=== PATIENT | male | born 1990 | race Hispanic/Latino ===

== ENCOUNTER 2017-06-27 15:22 | Observation (INO) | payer MEDICAID ==
[2017-06-27] MEDS ORDERED: Sodium Chloride 0.9% 1,000 ML IV STA (15:56)
--- NOTE | 2017-06-27 16:07 | ED PDOC ---
HPI: Abdomen Time Seen by Provider: 06/27/17 15:43 Chief Complaint (Nursing): Abdominal Pain Chief Complaint (Provider): Abdominal Pain History Per: Patient History/Exam Limitations: no limitations Onset/Duration Of Symptoms: Days Current Symptoms Are (Timing): Still Present Additional Complaint(s): 27 y/o male with a past medical history of crohn's disease (medicates with humeria) who presents to the emergency department with a complaint of a constant diffuse dull abdominal pain but intermittently waxes and wanes since 9pm last night, 06/26/2017. Associated with loss of appetite and 1 episode of non-bilious/non-bloody vomit. Reports he cannot pass gas and has not had stool output since last night. States symptoms are similar to past experience to when he was diagnosed with small bowel obstruction in 2016 and required surgery. Denies any further medical complaints. PMD: Dr. aMrko Lee MD ([place]) Past Medical History Reviewed: Historical Data, Nursing Documentation, Vital Signs Vital Signs: Last Vital Signs Temp 98.2 F 06/27/17 20:28 Pulse 86 06/27/17 20:28 Resp 19 06/27/17 20:36 BP 142/79 06/27/17 20:28 Pulse Ox 96 06/27/17 20:36 - Medical History PMH: Crohn's Disease - Surgical History Other surgeries: Crohn's surgery in 2016 and melanoma - Family History Family History: States: No Known Family Hx - Social History Current smoker - smoking cessation education provided: No Alcohol: Social Drugs: Denies - Home Medications Home Medications: Ambulatory Orders Medication Instructions Recorded Adalimumab [Humira Pen Crohn-Uc-Hs 40 mg pe INJ Q2W 06/27/17 Starter] - Allergies Allergies/Adverse Reactions: Allergies Allergy/AdvReac Type Severity Reaction Status Date / Time No Known Allergies Allergy Verified 06/27/17 15:38 Review of Systems ROS Statement: Except As Marked, All Systems Reviewed And Found Negative (As per HPI otherwise negative) Constitutional: Positive for: Other (Loss of appetite) Gastrointestinal: Positive for: Vomiting (1 episode ), Abdominal Pain (Diffuse) , Other (Not passing gas nor stool since last night). Negative for: Hematemesis (and non-bilious) Physical Exam - Reviewed Nursing Documentation Reviewed: Yes Vital Signs Reviewed: Yes - Physical Exam Appears: Positive for: Non-toxic, In Acute Distress (painful distress, and tired appearing) Head Exam: Positive for: ATRAUMATIC, NORMOCEPHALIC Skin: Positive for: Warm, Dry Eye Exam: Positive for: EOMI, PERRL ENT: Positive for: Other (dry mucus membranes). Negative for: Pharyngeal Erythema, Tonsillar Exudate Neck: Positive for: Painless ROM, Supple Cardiovascular/Chest: Positive for: Regular Rate, Rhythm, Chest Non Tender. Negative for: Murmur Respiratory: Positive for: Normal Breath Sounds. Negative for: Wheezing Gastrointestinal/Abdominal: Positive for: Bowel Sounds, Soft, Tenderness ( diffuse). Negative for: Mass, Distended, Guarding, Rebound Back: Positive for: Normal Inspection. Negative for: Vertebral Tenderness Extremity: Positive for: Normal ROM. Negative for: Deformity Lymphatic: Negative for: Adenopathy Neurologic/Psych: Positive for: Alert. Negative for: Motor/Sensory Deficits - Laboratory Results Result Diagrams: 06/27/17 16:30 06/27/17 16:30 - ECG O2 Sat by Pulse Oximetry: 100 (RA) Pulse Ox Interpretation: Normal Medical Decision Making Medical Decision Making: Time: 15:55 Initial Impression: Abdominal Pain. Differential includes small bowel obstruction, dipsia, gastritis, and crohn's exacerbation Initial Plan: --Blood and Lab work-up --Abd & pelvis IV contrast CT --Dextrose 500 ml IV 100 mls/hr --Morphine 2 mg IVP --Sodium Chloride 1L IV --Zofran 4 mg IVP --ED Observation for abdominal pain Any further documentation will be added to ED Obs section of chart. Scribe Attestation: Documented by Laura Hooper and Lanie Melara, acting as a scribe for Monica Early MD. Provider Scribe Attestation: All medical record entries made by the Scribe were at my direction and personally dictated by me. I have reviewed the chart and agree that the record accurately reflects my personal performance of the history, physical exam, medical decision making, and the department course for this patient. I have also personally directed, reviewed, and agree with the discharge instructions and disposition. ED OBSERVATION Discharge: Yes Date of observation admission: 06/27/17 Time of observation admission: 16:06 - Observation admission statement Patient is being placed in observation because:: abdominal pain - Goals of Observation Goals of observation are:: resolution of symptoms and CT results. - Progress Note Progress Note: 06/27/17 17:22 Labs reviewed no emergent significant abnormalities patient stable with slight improvement in pain after IV morphine. 06/27/17 18:12 CT ABD & Pelvis IV Contrast Only Dictated by: Eduar Tenorio MD. Impression: 1) Dilated distal small bowel loops up to small bowel large bowel anastomosis in the right abdomen. Findings may represent low-grade bowel obstruction versus stenosis at the small bowel large bowel anastomosis. No evidence of high grade bowel obstruction. 2) Trace amounts of free fluid in the lower abdomen and pelvis. 3) Diffuse midwall thickening of the dilated distal small suspicious for enteritis. Otherwise no evidence of acute pathology. 06/27/17 19:[address] Kang gastroenterology and dr Mike surgery. Patient is to be kept NPO and IV hydration. No steroids or antibiotics recommended at this time. Discussed with patient finding and plan of care Discussed with Hai Ortiz for [facility]. Disposition - Clinical Impression Clinical Impression: Bowel obstruction Counseled Patient/Family Regarding: Studies Performed, Diagnosis - Disposition Disposition Time: 16:06 Condition: FAIR - Pt Status Changed To: Hospital Disposition Of: Observation - POA Present On Arrival: None
[2017-06-27 16:35] LABS: BASO # 0.1 K/uL (0.0-0.2); BASO % 0.6 % (0.0-2.0); EOS # 0.1 K/uL (0.0-0.7); EOS % 1.2 % (0.0-4.0); HEMATOCRIT 44.1 % (35.0-51.0); LYMPH # 1.4 K/uL (1.0-4.3); LYMPH % 13.6 % (20.0-40.0); MEAN CELL VOLUME 92.9 fl (80.0-94.0); MEAN CORPUSCULAR HEMOGLOBIN 31.3 pg (27.0-31.0); MEAN CORPUSCULAR HGB CONC 33.7 g/dL (33.0-37.0); MEAN PLATELET VOLUME 8.8 fl (7.2-11.7); MONO # 1.1 K/uL (0.0-0.8); MONO % 10.6 % (0.0-10.0); NEUT # 7.5 K/uL (1.8-7.0); NRBC % 0.3 % (0.0-0.0); RED CELL DISTRIBUTION WIDTH 12.4 % (11.5-14.5); WHITE BLOOD COUNT 10.1 K/uL (4.8-10.8)
[2017-06-27 16:41] LABS: PARTIAL THROMBOPLASTIN TIME 28.7 Seconds (25.6-37.1)
[2017-06-27 16:42] LABS: ALB/GLOB RATIO 1.5 (1.0-2.1); ALKALINE PHOSPHATASE 58 U/L (38-126); ALT/SGPT 30 U/L (21-72); AST/SGOT 23 U/L (17-59); BILIRUBIN,TOTAL 4.3 mg/dl (0.2-1.3); BLOOD UREA NITROGEN 9 mg/dl (9-20); CALCIUM 9.4 mg/dL (8.4-10.2); CARBON DIOXIDE 27 mmol/L (22-30); CHLORIDE 101 mmol/L (98-107); GFR AFRICAN-AMERICAN > 60; GLUCOSE,RANDOM 90 mg/dL (75-110); LIPASE 57 U/L (23-300); POTASSIUM 3.6 MMOL/L (3.6-5.0); SODIUM 140 mmol/l (132-148); TOTAL PROTEIN 8.1 G/DL (6.3-8.2)
[2017-06-27] MEDS ORDERED: Iohexol 300 100 ML IJ ONE (17:11)
[2017-06-27] MEDS ORDERED: Sodium Chloride 0.9% 50 ML IV ONE (17:13)
--- NOTE | 2017-06-27 18:13 | CT ---
PROCEDURE: CT Abdomen and Pelvis with contrast HISTORY: abd pain h/o crohns and sbo, r/o sbo COMPARISON: None. TECHNIQUE: Contrast dose: 95 mL of Omnipaque 300. Axial and reformatted coronal and sagittal CT images of the abdomen were obtained after IV contrast administration. Radiation dose: Total exam DLP = 837.86 mGy-cm. This CT exam was performed using one or more of the following dose reduction techniques: Automated exposure control, adjustment of the mA and/or kV according to patient size, and/or use of iterative reconstruction technique. FINDINGS: LOWER THORAX: Unremarkable. LIVER: Unremarkable. No gross lesion or ductal dilatation. GALLBLADDER AND BILE DUCTS: Unremarkable. PANCREAS: Unremarkable. No gross lesion or ductal dilatation. SPLEEN: Unremarkable. ADRENALS: Unremarkable. No mass. KIDNEYS AND URETERS: Unremarkable. No hydronephrosis. No solid mass. VASCULATURE: Unremarkable. No aortic aneurysm. BOWEL: There are [id number] dilated distal small bowel loops demonstrate mild wall thickening. There is small bowel large bowel anastomosis seen at the right mid abdomen. Findings could be due to low-grade bowel obstruction versus stenosis at the small bowel large bowel anastomosis. The proximal small bowel loops are not dilated. The stomach is not distended. No evidence of pneumatosis. APPENDIX: The appendix is not visualized in this exam. PERITONEUM: Unremarkable. No free fluid. No free air. LYMPH NODES: Unremarkable. No enlarged lymph nodes. BLADDER: Unremarkable. REPRODUCTIVE: Unremarkable. BONES: No acute fracture. OTHER FINDINGS: None. IMPRESSION: Dilated distal small bowel loops up to small bowel large bowel anastomosis in the right abdomen. Findings may represent low-grade bowel obstruction versus stenosis at the small bowel large bowel anastomosis. No evidence of high-grade bowel obstruction. Trace amount of free fluid in the lower abdomen and pelvis. Diffuse mild wall thickening of the dilated distal small bowel loops suspicious for enteritis. Otherwise no evidence of acute pathology.
--- NOTE | 2017-06-27 21:05 | CP.PCM.CON ---
<Kat Duque - Last Filed: 06/27/17 22:08> History of Present Illness - History of Present Illness History of Present Illness: General Surgery Dr. Mike 27 y/o M w/ PHMx of Crohn's disease and melanoma presents to the ED c/o of diffuse abd pain x24hrs. Pt states pain began ~9pm yesterday evening after BM. BM was small caliber and loose. Pt denies melena, hematochezia. Pt reports 1 episode NBNB emesis at that time. Pt has not had BM or flatus since 9pm yesterday. Pt reports taking Humira for Crohn's and deneis any recent flares. Pt denies any bowel issues since ileocectomy in 2015. Pt admits to recent loose BMs but attributed it to poor diet. admits to some abd discomfort currently. Pt denies recent illnesses, F/C, CP, SOB. PMHx: see above Meds: reviewed in chart NKDA PSHx: laparoscopic ileocecetomy - [facility] 12/2015, melanoma excision - [facility] 2016 SHx: denies tobacco/drug use. occasional EtOH FHx: noncontributory Review of Systems - Review of Systems All systems: reviewed and no additional remarkable complaints except (see HPI) Past Patient History - Past Social History Alcohol: Social Drugs: Denies - GASTROINTESTINAL Hx Crohn's Disease: Yes - PSYCHIATRIC Hx Substance Use: No - SURGICAL HISTORY Other/Comment: ileocolectomy. melanoma excision - ANESTHESIA Hx Anesthesia: Yes Hx Anesthesia Reactions: No Meds Allergies/Adverse Reactions: Allergies Allergy/AdvReac Type Severity Reaction Status Date / Time No Known Allergies Allergy Verified 06/27/17 15:38 - Medications Medications: Current Medications Dextrose/Sodium Chloride (Dextrose 5%-0.9% Ns 500 Ml) 1,000 mls @ 100 mls/hr IV .Q10H ILIR Last Admin: 06/27/17 16:06 Dose: 100 mls/hr Physical Exam - Constitutional Appears: Non-toxic, No Acute Distress - Head Exam Head Exam: NORMAL INSPECTION - Eye Exam Eye Exam: Normal appearance - ENT Exam ENT Exam: Mucous Membranes Moist - Neck Exam Additional comments: scar present over R clavicle from melanoma excision - Respiratory Exam Respiratory Exam: NORMAL BREATHING PATTERN. absent: Accessory Muscle Use, Respiratory Distress - Cardiovascular Exam Cardiovascular Exam: absent: Bradycardia, Tachycardia - GI/Abdominal Exam GI & Abdominal Exam: Distended (minimal), Soft, Tenderness (minimal TTP R-mid abd). absent: Firm, Guarding, Rebound, Rigid Additional comments: no visible abd scaring - Extremities Exam Extremities exam: Positive for: normal inspection - Neurological Exam Neurological exam: Alert, Oriented x3 - Psychiatric Exam Psychiatric exam: Normal Affect, Normal Mood - Skin Skin Exam: Dry, Intact, Normal Color, Warm Results - Vital Signs Recent Vital Signs: Last Vital Signs Temp 98.4 F 06/27/17 20:20 Pulse 94 H 06/27/17 20:20 Resp 16 06/27/17 20:20 BP 156/97 H 06/27/17 20:20 Pulse Ox 100 06/27/17 20:00 - Labs Result Diagrams: 06/27/17 16:30 06/27/17 16:30 Labs: Laboratory Results - last 24 hr 06/27/17 06/27/17 06/27/17 15:56 16:30 16:30 WBC 10.1 RBC 4.75 Hgb 14.8 Hct 44.1 MCV 92.9 MCH 31.3 H MCHC 33.7 RDW 12.4 Plt Count 224 MPV 8.8 Neut % (Auto) 74.0 Lymph % (Auto) 13.6 L [place] % (Auto) 10.6 H Eos % (Auto) 1.2 Baso % (Auto) 0.6 Neut # 7.5 H Lymph # 1.4 [place] # 1.1 H Eos # 0.1 Baso # 0.1 PT INR APTT Sodium 140 Potassium 3.6 Chloride 101 Carbon Dioxide 27 Anion Gap 16 BUN 9 Creatinine 0.8 Est GFR ( Amer) > 60 Est GFR (Non-Af Amer) > 60 Random Glucose 90 Calcium 9.4 Total Bilirubin 4.3 H AST 23 ALT 30 Alkaline Phosphatase 58 Total Protein 8.1 Albumin 4.9 Globulin 3.2 Albumin/Globulin Ratio 1.5 Lipase 57 Urine Opiates Screen Urine Methadone Screen Ur Barbiturates Screen Ur Phencyclidine Scrn Ur Amphetamines Screen U Benzodiazepines Scrn U Oth Cocaine Metabols U Cannabinoids Screen Blood Type O POSITIVE Blood Type Confirm Antibody Screen Negative BBK History Checked No verified bt 06/27/17 06/27/17 06/27/17 16:30 16:30 17:18 WBC RBC Hgb Hct MCV MCH MCHC RDW Plt Count MPV Neut % (Auto) Lymph % (Auto) [place] % (Auto) Eos % (Auto) Baso % (Auto) Neut # Lymph # [place] # Eos # Baso # PT 12.6 INR 1.2 APTT 28.7 Sodium Potassium Chloride Carbon Dioxide Anion Gap BUN Creatinine Est GFR ( Amer) Est GFR (Non-Af Amer) Random Glucose Calcium Total Bilirubin AST ALT Alkaline Phosphatase Total Protein Albumin Globulin Albumin/Globulin Ratio Lipase Urine Opiates Screen Negative Urine Methadone Screen Negative Ur Barbiturates Screen Negative Ur Phencyclidine Scrn Negative Ur Amphetamines Screen Negative U Benzodiazepines Scrn Negative U Oth Cocaine Metabols Negative U Cannabinoids Screen Negative Blood Type Blood Type Confirm O POSITIVE Antibody Screen BBK History Checked - Imaging and Cardiology CT scan - abdomen Status: Image reviewed by me, Report reviewed by me Assessment & Plan - Assessment and Plan (Free Text) Assessment: 27 y/o M w/ PHMx of corhn's presents w/ SBO vs anastomotic stricture/stenosis - NPO, IVF - pain management - anti-emetic - NGT if vomiting worsens - f/u GI recs - consider colonoscopy - Further recs per Dr. Talyor Duque DO PGY2 <Todd Vazquez - Last Filed: 06/28/17 10:27> History of Present Illness - History of Present Illness History of Present Illness: Patient was seen and examined at the bedside. Agree with resident's note above. Meds - Medications Medications: Current Medications Home Med (Adalimumab [Humira Pen Crohn-Uc-Hs Starter]) 40 mg pe INJ Q2W ILIR Dextrose/Sodium Chloride (Dextrose 5%-0.9% Ns 500 Ml) 1,000 mls @ 100 mls/hr IV .Q10H ILIR Last Admin: 06/28/17 04:29 Dose: 100 mls/hr Morphine Sulfate (Morphine) 2 mg IVP Q4 PRN PRN Reason: pain 6-10 Last Admin: 06/27/17 21:35 Dose: 2 mg Ondansetron HCl (Zofran Inj) 4 mg IVP Q6 PRN PRN Reason: Nausea/Vomiting Results - Vital Signs Recent Vital Signs: Last Vital Signs Temp 97.9 F 06/28/17 09:00 Pulse 70 06/28/17 09:00 Resp 19 06/28/17 09:00 BP 120/76 06/28/17 09:00 Pulse Ox 96 06/28/17 09:00 - Labs Result Diagrams: 06/28/17 06:00 06/28/17 07:15 Labs: Laboratory Results - last 24 hr 06/27/17 06/27/17 06/27/17 15:56 16:30 16:30 WBC 10.1 RBC 4.75 Hgb 14.8 Hct 44.1 MCV 92.9 MCH 31.3 H MCHC 33.7 RDW 12.4 Plt Count 224 MPV 8.8 Neut % (Auto) 74.0 Lymph % (Auto) 13.6 L [place] % (Auto) 10.6 H Eos % (Auto) 1.2 Baso % (Auto) 0.6 Neut # 7.5 H Lymph # 1.4 [place] # 1.1 H Eos # 0.1 Baso # 0.1 PT INR APTT Sodium 140 Potassium 3.6 Chloride 101 Carbon Dioxide 27 Anion Gap 16 BUN 9 Creatinine 0.8 Est GFR ( Amer) > 60 Est GFR (Non-Af Amer) > 60 Random Glucose 90 Calcium 9.4 Total Bilirubin 4.3 H AST 23 ALT 30 Alkaline Phosphatase 58 Total Protein 8.1 Albumin 4.9 Globulin 3.2 Albumin/Globulin Ratio 1.5 Lipase 57 Urine Opiates Screen Urine Methadone Screen Ur Barbiturates Screen Ur Phencyclidine Scrn Ur Amphetamines Screen U Benzodiazepines Scrn U Oth Cocaine Metabols U Cannabinoids Screen Blood Type O POSITIVE Blood Type Confirm Antibody Screen Negative BBK History Checked No verified bt 06/27/17 06/27/17 06/27/17 16:30 16:30 17:18 WBC RBC Hgb Hct MCV MCH MCHC RDW Plt Count MPV Neut % (Auto) Lymph % (Auto) [place] % (Auto) Eos % (Auto) Baso % (Auto) Neut # Lymph # [place] # Eos # Baso # PT 12.6 INR 1.2 APTT 28.7 Sodium Potassium Chloride Carbon Dioxide Anion Gap BUN Creatinine Est GFR ( Amer) Est GFR (Non-Af Amer) Random Glucose Calcium Total Bilirubin AST ALT Alkaline Phosphatase Total Protein Albumin Globulin Albumin/Globulin Ratio Lipase Urine Opiates Screen Negative Urine Methadone Screen Negative Ur Barbiturates Screen Negative Ur Phencyclidine Scrn Negative Ur Amphetamines Screen Negative U Benzodiazepines Scrn Negative U Oth Cocaine Metabols Negative U Cannabinoids Screen Negative Blood Type Blood Type Confirm O POSITIVE Antibody Screen BBK History Checked 06/28/17 06/28/17 06:00 07:15 WBC 7.6 RBC 3.99 L Hgb 12.6 D Hct 37.5 MCV 93.8 MCH 31.4 H MCHC 33.5 RDW 12.4 Plt Count 193 MPV 8.9 Neut % (Auto) 71.6 Lymph % (Auto) 13.0 L [place] % (Auto) 14.3 H Eos % (Auto) 0.8 Baso % (Auto) 0.3 Neut # 5.4 Lymph # 1.0 [place] # 1.1 H Eos # 0.1 Baso # 0.0 PT INR APTT Sodium 139 Potassium 4.0 Chloride 105 Carbon Dioxide 26 Anion Gap 12 BUN 8 L Creatinine 0.8 Est GFR ( Amer) > 60 Est GFR (Non-Af Amer) > 60 Random Glucose 100 Calcium 8.7 Total Bilirubin 4.3 H AST 16 L D ALT 26 Alkaline Phosphatase 42 Total Protein 6.2 L Albumin 3.7 Globulin 2.5 Albumin/Globulin Ratio 1.5 Lipase Urine Opiates Screen Urine Methadone Screen Ur Barbiturates Screen Ur Phencyclidine Scrn Ur Amphetamines Screen U Benzodiazepines Scrn U Oth Cocaine Metabols U Cannabinoids Screen Blood Type Blood Type Confirm Antibody Screen BBK History Checked Assessment & Plan - Assessment and Plan (Free Text) Plan: - GI evaluation - IV fluids - NPO - Pain control - Repeat labs in am - Will follow
[2017-06-27] MEDS ORDERED: ADALIMUMAB INJ SCH (21:15)
[2017-06-27 21:57] VITALS: RESP 19
[2017-06-28 06:50] LABS: BASO % 0.3 % (0.0-2.0); EOS # 0.1 K/uL (0.0-0.7); EOS % 0.8 % (0.0-4.0); HEMATOCRIT 37.5 % (35.0-51.0); MEAN CELL VOLUME 93.8 fl (80.0-94.0); MEAN CORPUSCULAR HEMOGLOBIN 31.4 pg (27.0-31.0); MEAN CORPUSCULAR HGB CONC 33.5 g/dL (33.0-37.0); MEAN PLATELET VOLUME 8.9 fl (7.2-11.7); MONO # 1.1 K/uL (0.0-0.8); MONO % 14.3 % (0.0-10.0); NEUT # 5.4 K/uL (1.8-7.0); NEUT % 71.6 % (50.0-75.0); RED CELL DISTRIBUTION WIDTH 12.4 % (11.5-14.5); WHITE BLOOD COUNT 7.6 K/uL (4.8-10.8)
[2017-06-28 06:58] LABS: ALB/GLOB RATIO 1.5 (1.0-2.1); ALKALINE PHOSPHATASE 42 U/L (38-126); ALT/SGPT 26 U/L (21-72); AST/SGOT 16 U/L (17-59); BILIRUBIN,TOTAL 4.3 mg/dl (0.2-1.3); BLOOD UREA NITROGEN 8 mg/dl (9-20); CALCIUM 8.7 mg/dL (8.4-10.2); CARBON DIOXIDE 26 mmol/L (22-30); CHLORIDE 105 mmol/L (98-107); GFR AFRICAN-AMERICAN > 60; GLUCOSE,RANDOM 100 mg/dL (75-110); SODIUM 139 mmol/l (132-148); TOTAL PROTEIN 6.2 G/DL (6.3-8.2)
--- NOTE | 2017-06-28 07:56 | CP.PCM.PN ---
<Damian Lopez - Last Filed: 06/28/17 07:50> Subjective - Date & Time of Evaluation Date of Evaluation: 06/28/17 Time of Evaluation: 07:51 - Subjective Subjective: Surgery Patient complains of similar lower abdominal pain. He denies vomiting. Reports nausea. Denies f/c. Denies flatus or bowel movement. Objective - Vital Signs/Intake and Output Vital Signs (last 24 hours): Temp Pulse Resp BP Pulse Ox 98.4 F 87 19 131/76 96 06/28/17 01:00 06/28/17 01:00 06/28/17 01:00 06/28/17 01:00 06/28/17 01:00 - Medications Medications: Current Medications Home Med (Adalimumab [Humira Pen Crohn-Uc-Hs Starter]) 40 mg pe INJ Q2W ILIR Dextrose/Sodium Chloride (Dextrose 5%-0.9% Ns 500 Ml) 1,000 mls @ 100 mls/hr IV .Q10H ILIR Last Admin: 06/28/17 04:29 Dose: 100 mls/hr Morphine Sulfate (Morphine) 2 mg IVP Q4 PRN PRN Reason: pain 6-10 Last Admin: 06/27/17 21:35 Dose: 2 mg Ondansetron HCl (Zofran Inj) 4 mg IVP Q6 PRN PRN Reason: Nausea/Vomiting - Labs Labs: 06/28/17 06:00 06/28/17 07:15 PT 12.6 Seconds (9.8-13.1) 06/27/17 16:30 INR 1.2 (0.9-1.2) 06/27/17 16:30 APTT 28.7 Seconds (25.6-37.1) 06/27/17 16:30 - Constitutional Appears: Well, Non-toxic, No Acute Distress - Head Exam Head Exam: ATRAUMATIC, NORMOCEPHALIC - Eye Exam Eye Exam: EOMI, Normal appearance - ENT Exam ENT Exam: Mucous Membranes Moist - Respiratory Exam Respiratory Exam: NORMAL BREATHING PATTERN. absent: Respiratory Distress - Cardiovascular Exam Cardiovascular Exam: REGULAR RHYTHM. absent: Tachycardia - GI/Abdominal Exam GI & Abdominal Exam: Soft, Tenderness (mild in lower abdomen bilateral). absent : Guarding, Rigid, Mass, Rebound - Neurological Exam Neurological Exam: Alert, Awake - Psychiatric Exam Psychiatric exam: Normal Affect, Normal Mood - Skin Skin Exam: Warm Assessment and Plan - Assessment and Plan (Free Text) Assessment: 27 y/o male w/ abdominal pain most likely Crohn's Plan: -GI recs -cont Crohn's medication -NPO for now -IVF hydration -monitor for bowel function -d/w Dr. Vazquez AKWhite PGY3 <Todd Vazquez - Last Filed: 06/29/17 13:46> Objective - Vital Signs/Intake and Output Vital Signs (last 24 hours): Temp Pulse Resp BP Pulse Ox 98.0 F 63 19 121/77 99 06/28/17 16:31 06/28/17 16:31 06/28/17 16:31 06/28/17 16:31 06/28/17 16:31 - Labs Labs: 06/28/17 06:00 06/28/17 07:15 PT 12.6 Seconds (9.8-13.1) 06/27/17 16:30 INR 1.2 (0.9-1.2) 06/27/17 16:30 APTT 28.7 Seconds (25.6-37.1) 06/27/17 16:30 Assessment and Plan - Assessment and Plan (Free Text) Plan: - Clear liquid diet - advance as tolerated
--- NOTE | 2017-06-28 08:19 | CP.PCM.HP ---
History of Present Illness - History of Present Illness History of Present Illness: pt admitted for chrons exacerbationa nd abd pain. nof /c, n/v/d. states sat night ate something the disagreed w/ him and he got abd pain w/ n/v. bw noted. has been on humira since 2013. pt is s/p ilectomy 2012. Present on Admission - Present on Admission Any Indicators Present on Admission: No Review of Systems - Gastrointestinal Gastrointestinal: As Per HPI, Abdominal Pain, Bloating, Nausea, Vomiting Past Patient History - Past Medical History & Family History Past Medical History?: Yes - Past Social History Alcohol: Social Drugs: Denies - CARDIAC Hx Cardiac Disorders: No - PULMONARY Hx Respiratory Disorders: No - NEUROLOGICAL Hx Neurological Disorder: No - HEENT Hx HEENT Problems: No - RENAL Hx Chronic Kidney Disease: No - ENDOCRINE/METABOLIC Hx Endocrine Disorders: No - HEMATOLOGICAL/ONCOLOGICAL Hx Blood Disorders: No Hx AIDS: No Hx Human Immunodeficiency Virus (HIV): No - INTEGUMENTARY Hx Dermatological Problems: Yes Hx Melanoma: Yes (s/p surgical int rt upperclavicle area 06/04/17) - MUSCULOSKELETAL/RHEUMATOLOGICAL Hx Musculoskeletal Disorders: No Hx Falls: No - GASTROINTESTINAL Hx Crohn's Disease: Yes - GENITOURINARY/GYNECOLOGICAL Hx Genitourinary Disorders: No - PSYCHIATRIC Hx Substance Use: No - SURGICAL HISTORY Other/Comment: ileocolectomy. melanoma excision - ANESTHESIA Hx Anesthesia: Yes Hx Anesthesia Reactions: No Meds Allergies/Adverse Reactions: Allergies Allergy/AdvReac Type Severity Reaction Status Date / Time No Known Allergies Allergy Verified 06/27/17 15:38 Physical Exam - Constitutional Appears: Well, Non-toxic, No Acute Distress - Head Exam Head Exam: ATRAUMATIC, NORMAL INSPECTION, NORMOCEPHALIC - Eye Exam Eye Exam: EOMI, Normal appearance, PERRL Pupil Exam: NORMAL ACCOMODATION, PERRL - ENT Exam ENT Exam: Mucous Membranes Moist, Normal Exam - Neck Exam Neck exam: Positive for: Normal Inspection - Respiratory Exam Respiratory Exam: Clear to Auscultation Bilateral, NORMAL BREATHING PATTERN - Cardiovascular Exam Cardiovascular Exam: REGULAR RHYTHM, RRR, +S1, +S2 - GI/Abdominal Exam GI & Abdominal Exam: Normal Bowel Sounds, Soft. absent: Tenderness - Extremities Exam Extremities exam: Positive for: full ROM, normal capillary refill, normal inspection, pedal pulses present - Back Exam Back exam: NORMAL INSPECTION - Neurological Exam Neurological exam: Alert, CN II-XII Intact, Normal Gait, Oriented x3, Reflexes Normal - Psychiatric Exam Psychiatric exam: Normal Affect, Normal Mood - Skin Skin Exam: Dry, Intact, Normal Color, Warm Results - Vital Signs Recent Vital Signs: Last Vital Signs Temp 98.4 F 06/28/17 01:00 Pulse 87 06/28/17 01:00 Resp 19 06/28/17 01:00 BP 131/76 06/28/17 01:00 Pulse Ox 96 06/28/17 01:00 - Labs Result Diagrams: 06/28/17 06:00 06/28/17 07:15 Labs: Laboratory Results - last 24 hr 06/27/17 06/27/17 06/27/17 15:56 16:30 16:30 WBC 10.1 RBC 4.75 Hgb 14.8 Hct 44.1 MCV 92.9 MCH 31.3 H MCHC 33.7 RDW 12.4 Plt Count 224 MPV 8.8 Neut % (Auto) 74.0 Lymph % (Auto) 13.6 L Worth % (Auto) 10.6 H Eos % (Auto) 1.2 Baso % (Auto) 0.6 Neut # 7.5 H Lymph # 1.4 Worth # 1.1 H Eos # 0.1 Baso # 0.1 PT INR APTT Sodium 140 Potassium 3.6 Chloride 101 Carbon Dioxide 27 Anion Gap 16 BUN 9 Creatinine 0.8 Est GFR ( Amer) > 60 Est GFR (Non-Af Amer) > 60 Random Glucose 90 Calcium 9.4 Total Bilirubin 4.3 H AST 23 ALT 30 Alkaline Phosphatase 58 Total Protein 8.1 Albumin 4.9 Globulin 3.2 Albumin/Globulin Ratio 1.5 Lipase 57 Urine Opiates Screen Urine Methadone Screen Ur Barbiturates Screen Ur Phencyclidine Scrn Ur Amphetamines Screen U Benzodiazepines Scrn U Oth Cocaine Metabols U Cannabinoids Screen Blood Type O POSITIVE Blood Type Confirm Antibody Screen Negative BBK History Checked No verified bt 06/27/17 06/27/17 06/27/17 16:30 16:30 17:18 WBC RBC Hgb Hct MCV MCH MCHC RDW Plt Count MPV Neut % (Auto) Lymph % (Auto) Worth % (Auto) Eos % (Auto) Baso % (Auto) Neut # Lymph # Worth # Eos # Baso # PT 12.6 INR 1.2 APTT 28.7 Sodium Potassium Chloride Carbon Dioxide Anion Gap BUN Creatinine Est GFR ( Amer) Est GFR (Non-Af Amer) Random Glucose Calcium Total Bilirubin AST ALT Alkaline Phosphatase Total Protein Albumin Globulin Albumin/Globulin Ratio Lipase Urine Opiates Screen Negative Urine Methadone Screen Negative Ur Barbiturates Screen Negative Ur Phencyclidine Scrn Negative Ur Amphetamines Screen Negative U Benzodiazepines Scrn Negative U Oth Cocaine Metabols Negative U Cannabinoids Screen Negative Blood Type Blood Type Confirm O POSITIVE Antibody Screen BBK History Checked 06/28/17 06/28/17 06:00 07:15 WBC 7.6 RBC 3.99 L Hgb 12.6 D Hct 37.5 MCV 93.8 MCH 31.4 H MCHC 33.5 RDW 12.4 Plt Count 193 MPV 8.9 Neut % (Auto) 71.6 Lymph % (Auto) 13.0 L Worth % (Auto) 14.3 H Eos % (Auto) 0.8 Baso % (Auto) 0.3 Neut # 5.4 Lymph # 1.0 Worth # 1.1 H Eos # 0.1 Baso # 0.0 PT INR APTT Sodium 139 Potassium 4.0 Chloride 105 Carbon Dioxide 26 Anion Gap 12 BUN 8 L Creatinine 0.8 Est GFR ( Amer) > 60 Est GFR (Non-Af Amer) > 60 Random Glucose 100 Calcium 8.7 Total Bilirubin 4.3 H AST 16 L D ALT 26 Alkaline Phosphatase 42 Total Protein 6.2 L Albumin 3.7 Globulin 2.5 Albumin/Globulin Ratio 1.5 Lipase Urine Opiates Screen Urine Methadone Screen Ur Barbiturates Screen Ur Phencyclidine Scrn Ur Amphetamines Screen U Benzodiazepines Scrn U Oth Cocaine Metabols U Cannabinoids Screen Blood Type Blood Type Confirm Antibody Screen BBK History Checked Assessment & Plan (1) Exacerbation of Crohn's disease Assessment and Plan: gi npo, adv as soumya pain and nausea control ivf Status: Acute (2) Bowel obstruction Assessment and Plan: npo gi/surgery Status: Acute Decision To Admit - Pt Status Changed To: Hospital Disposition Of: Observation - . Bed Request Type: Med/Surg Admitting Physician: Kurt Gomez
[2017-06-28 16:11] VITALS: BP 121/77; PULSE 63; TEMP 98; O2SAT 99
--- NOTE | 2017-06-28 18:08 | CP.PCM.DIS ---
Provider - Provider Date of Admission: 06/27/17 15:57 Attending physician: Kurt Gomez MD Time Spent in preparation of Discharge (in minutes): 15 Diagnosis - Discharge Diagnosis (1) Exacerbation of Crohn's disease Status: Acute (2) Bowel obstruction Status: Acute Hospital Course - Lab Results Lab Results: Micro Results 06/27/17 16:25 Blood-Venous Blood Culture - Preliminary NO GROWTH AFTER 24 HOURS 06/27/17 16:56 Blood-Venous Blood Culture - Preliminary NO GROWTH AFTER 24 HOURS Most Recent Lab Values WBC 7.6 K/uL (4.8-10.8) 06/28/17 06:00 RBC 3.99 Mil/uL (4.40-5.90) L 06/28/17 06:00 Hgb 12.6 g/dL (12.0-18.0) D 06/28/17 06:00 Hct 37.5 % (35.0-51.0) 06/28/17 06:00 MCV 93.8 fl (80.0-94.0) 06/28/17 06:00 MCH 31.4 pg (27.0-31.0) H 06/28/17 06:00 MCHC 33.5 g/dL (33.0-37.0) 06/28/17 06:00 RDW 12.4 % (11.5-14.5) 06/28/17 06:00 Plt Count 193 K/uL (130-400) 06/28/17 06:00 MPV 8.9 fl (7.2-11.7) 06/28/17 06:00 Neut % (Auto) 71.6 % (50.0-75.0) 06/28/17 06:00 Lymph % (Auto) 13.0 % (20.0-40.0) L 06/28/17 06:00 Bollinger % (Auto) 14.3 % (0.0-10.0) H 06/28/17 06:00 Eos % (Auto) 0.8 % (0.0-4.0) 06/28/17 06:00 Baso % (Auto) 0.3 % (0.0-2.0) 06/28/17 06:00 Neut # 5.4 K/uL (1.8-7.0) 06/28/17 06:00 Lymph # 1.0 K/uL (1.0-4.3) 06/28/17 06:00 Bollinger # 1.1 K/uL (0.0-0.8) H 06/28/17 06:00 Eos # 0.1 K/uL (0.0-0.7) 06/28/17 06:00 Baso # 0.0 K/uL (0.0-0.2) 06/28/17 06:00 ESR 11 mm/hr (0-15) 06/28/17 12:15 PT 12.6 Seconds (9.8-13.1) 06/27/17 16:30 INR 1.2 (0.9-1.2) 06/27/17 16:30 APTT 28.7 Seconds (25.6-37.1) 06/27/17 16:30 Sodium 139 mmol/l (132-148) 06/28/17 07:15 Potassium 4.0 MMOL/L (3.6-5.0) 06/28/17 07:15 Chloride 105 mmol/L (98-107) 06/28/17 07:15 Carbon Dioxide 26 mmol/L (22-30) 06/28/17 07:15 Anion Gap 12 (10-20) 06/28/17 07:15 BUN 8 mg/dl (9-20) L 06/28/17 07:15 Creatinine 0.8 mg/dL (0.8-1.5) 06/28/17 07:15 Est GFR ( Amer) > 60 06/28/17 07:15 Est GFR (Non-Af Amer) > 60 06/28/17 07:15 Random Glucose 100 mg/dL (75-110) 06/28/17 07:15 Calcium 8.7 mg/dL (8.4-10.2) 06/28/17 07:15 Total Bilirubin 4.3 mg/dl (0.2-1.3) H 06/28/17 07:15 Direct Bilirubin 0.7 mg/ml (0.0-0.4) H 06/28/17 12:13 AST 16 U/L (17-59) L D 06/28/17 07:15 ALT 26 U/L (21-72) 06/28/17 07:15 Alkaline Phosphatase 42 U/L (38-126) 06/28/17 07:15 C-React Prot High Sens 11.46 mg/L (1.00-3.00) H 06/28/17 12:13 Total Protein 6.2 G/DL (6.3-8.2) L 06/28/17 07:15 Albumin 3.7 g/dL (3.5-5.0) 06/28/17 07:15 Globulin 2.5 gm/dL (2.2-3.9) 06/28/17 07:15 Albumin/Globulin Ratio 1.5 (1.0-2.1) 06/28/17 07:15 Lipase 57 U/L (23-300) 06/27/17 16:30 Urine Opiates Screen Negative (NEGATIVE) 06/27/17 16:30 Urine Methadone Screen Negative (NEGATIVE) 06/27/17 16:30 Ur Barbiturates Screen Negative (NEGATIVE) 06/27/17 16:30 Ur Phencyclidine Scrn Negative (NEGATIVE) 06/27/17 16:30 Ur Amphetamines Screen Negative (NEGATIVE) 06/27/17 16:30 U Benzodiazepines Scrn Negative (NEGATIVE) 06/27/17 16:30 U Oth Cocaine Metabols Negative (NEGATIVE) 06/27/17 16:30 U Cannabinoids Screen Negative (NEGATIVE) 06/27/17 16:30 Blood Type O POSITIVE 06/27/17 15:56 Blood Type Confirm O POSITIVE 06/27/17 17:18 Antibody Screen Negative 06/27/17 15:56 BBK History Checked No verified bt 06/27/17 15:56 Discharge Exam - Head Exam Head Exam: ATRAUMATIC, NORMAL INSPECTION, NORMOCEPHALIC Discharge Plan - Discharge Medications Prescriptions: Ciprofloxacin HCl [Cipro] 500 mg PO BID #14 tablet Famotidine [Pepcid] 20 mg PO DAILY #30 tab Metronidazole [Flagyl] 500 mg PO Q8 #21 tablet Ondansetron [Zofran Odt] 4 mg PO Q8 PRN #20 odt PRN Reason: Nausea/Vomiting - Follow Up Plan Condition: FAIR Disposition: HOME/ ROUTINE Instructions: Crohn Disease (DC) Additional Instructions: follow up with dr martin tomorrow 06/29/17 petragn well. soumya po. no f/c, n/v/d cleared by gi for dc final dx- crohn exacerbation meds escribed Referrals: Kurt Gomez MD [Staff Provider] - Todd Vazquez MD [Staff Provider] - Tree Telles MD, PhD [Staff Provider] -
== END 2017-06-28 19:30 | disposition home or self-care (01) ==
LOC: H.ER 15:22 → H.EROBSV 15:57 → H.ERHOLD 18:54 → H.MEDSURG1 20:25
PROVIDERS: ADMIT Family Medicine; ATTEND Family Medicine
DX: K50.912 Crohn's disease, unspecified, with intestinal obstruction (principal); Z85.820 Personal history of malignant melanoma of skin
CPT/HCPCS: 36415; 74177; 80053; 80324; 80345; 80346; 80349; 80353; 80358; 80361; 82248; 83690; 83992; 85025; 85610; 85651; 85730; 86140; 86850; 86900; 87040; 96360; 96374; 99284; G0378; J2270; J2405; J7040; J7042; Q9967